=== PATIENT | male | born 1940 | race Caucasian/White ===

== ENCOUNTER → 2019-10-25 | Outpatient (CLI) | payer OTHER, MEDICARE ==
[~2019-10-25] MED LIST: ADULT LOW DOSE81 MG PO; FISHOIL PO; HCTZ PO; LIPITOR; LISINOPRIL20 MG PO; ZOCOR PO; [UNRECOGNIZED DRUG - REMARK]
== END ==
LOC: SJCVCIMAG 06:49
DX: I65.23 Occlusion and stenosis of bilateral carotid arteries (principal); I25.10 Atherosclerotic heart disease of native coronary artery without angina pectoris; Z95.1 Presence of aortocoronary bypass graft

== ENCOUNTER → 2020-07-27 | Outpatient (CLI) | payer OTHER | LOC: SJCVC 10:22 | PROVIDERS: ATTEND Internal Medicine Cardiovascular Disease | DX: I45.10 Unspecified right bundle-branch block (principal); I44.7 Left bundle-branch block, unspecified; R94.31 Abnormal electrocardiogram [ECG] [EKG]; I25.810 Atherosclerosis of coronary artery bypass graft(s) without angina pectoris; I10 Essential (primary) hypertension; E78.00 Pure hypercholesterolemia, unspecified; R00.1 Bradycardia, unspecified; Z95.1 Presence of aortocoronary bypass graft; I65.29 Occlusion and stenosis of unspecified carotid artery; K55.1 Chronic vascular disorders of intestine; Z87.891 Personal history of nicotine dependence; Z72.89 Other problems related to lifestyle; Z79.82 Long term (current) use of aspirin; Z79.899 Other long term (current) drug therapy; Z88.0 Allergy status to penicillin; Z90.89 Acquired absence of other organs; Z98.890 Other specified postprocedural states ==

== ENCOUNTER → 2020-10-25 | Outpatient (CLI) | payer OTHER | LOC: RAD 14:21 | PROVIDERS: ATTEND Neurological Surgery | DX: M48.062 Spinal stenosis, lumbar region with neurogenic claudication (principal); M41.86 Other forms of scoliosis, lumbar region ==

== ENCOUNTER → 2021-04-25 | Outpatient (CLI) | payer OTHER ==
[~2021-04-25] MED LIST changes: +NORVASC5 MG PO; +OLMESARTAN-HCT1 EAC2 PO; +SIMVASTATIN40 MG PO; -ZOCOR PO
== END ==
LOC: SJCVCIMAG 09:23
PROVIDERS: ATTEND Internal Medicine Cardiovascular Disease
DX: R94.31 Abnormal electrocardiogram [ECG] [EKG] (principal); I45.10 Unspecified right bundle-branch block; R00.1 Bradycardia, unspecified; I70.8 Atherosclerosis of other arteries; I25.10 Atherosclerotic heart disease of native coronary artery without angina pectoris; I10 Essential (primary) hypertension; E78.00 Pure hypercholesterolemia, unspecified; I65.29 Occlusion and stenosis of unspecified carotid artery; K55.1 Chronic vascular disorders of intestine; I71.4 Abdominal aortic aneurysm, without rupture; R01.1 Cardiac murmur, unspecified; Z95.1 Presence of aortocoronary bypass graft; R06.00 Dyspnea, unspecified; E78.5 Hyperlipidemia, unspecified; Z79.82 Long term (current) use of aspirin; Z79.899 Other long term (current) drug therapy; Z72.89 Other problems related to lifestyle; Z88.0 Allergy status to penicillin; Z87.891 Personal history of nicotine dependence

== ENCOUNTER 2021-05-04 09:25 | Inpatient (IN) | payer OTHER ==
[~2021-05-04] VITALS: Ht 182.9 cm; Wt 72.6 kg
[~2021-05-04 09:25] MED LIST changes: -NORVASC5 MG PO; -OLMESARTAN-HCT1 EAC2 PO
[2021-05-04 09:39] VITALS: BP 138/91
[2021-05-04] MEDS ORDERED: OLMESARTAN-HCT1 EAC2 PO (09:45)
[2021-05-04] MEDS ORDERED: NORVASC5 MG PO (09:45)
[2021-05-04 11:10] LABS: ABSOLUTE NEUTROPHILS 13.5 thou/uL (1.4-8.2); BASOPHILS 0.3 % (0.0-2.0); EOSINOPHILS 0.2 % (0.0-3.0); HEMATOCRIT 43.6 % (42.0-52.0); HEMOGLOBIN 14.5 gm/dL (14.0-18.0); LYMPHOCYTES 5.3 % (24.0-44.0); MCH 30.7 pg (26.0-34.0); MCHC 33.2 g/dL (28.0-37.0); MCV 92.6 fL (80.0-100.0); MONOCYTES 3.5 % (1.0-8.0); PLATELET COUNT 250 thou/uL (150-400); POLYS 90.7 % (36.0-66.0); RBC 4.71 mil/uL (4.50-6.00); WBC 14.9 thou/uL (4.0-11.0)
[2021-05-04 11:13] LABS: CALCIUM 9.8 mg/dL (8.5-10.1); CREATININE 1.3 mg/dL (0.7-1.3)
[2021-05-04 11:15] LABS: URINE BILIRUBIN NEGATIVE (Negative); URINE BLOOD NEGATIVE (Negative); URINE CLARITY CLEAR; URINE COLOR YELLOW; URINE GLUCOSE-RANDOM* NEGATIVE (Negative); URINE KETONES TRACE (Negative); URINE LEUKOCYTES-REFLEX NEGATIVE (Negative); URINE NITRITE-REFLEX NEGATIVE (Negative); URINE PROTEIN (DIPSTICK) NEGATIVE (Negative); URINE UROBILINOGEN 0.2 E.U./dl (0.2-1.0)
[2021-05-04 11:24] LABS: ALBUMIN 4.6 g/dL (3.4-5.0); TOTAL BILIRUBIN 0.8 mg/dL (0.2-1.0); TOTAL PROTEIN 7.9 g/dL (6.4-8.2)
[2021-05-04 16:34] VITALS: BP 157/65
[2021-05-04 17:07] VITALS: BP 153/65
[2021-05-04 17:37] VITALS: BP 151/78
--- NOTE | 2021-05-04 18:07 | NUR ---
ASSUMED PT CARE AT 1730 FROM ED. PT IS ALERT & ORIENTED X4. PT HAS IV SITE ON RAC. PT IS ON ROOM AIR. PT RATED PAIN 1/10 ON ABDOMEN. PT LAST BM WAS TODAY. PT IS ACCUCHECK ACHS. FINISHED ADMISSION. PT IS AT THE BEDSIDE. PT IS UP AD ISHMAEL. WILL CONTINUE TO MONITOR PT. FOLLOW POC.
[2021-05-04 21:24] VITALS: BP 148/49
--- NOTE | 2021-05-05 01:37 | NUR ---
PT AMBULATING TO BATHROMM INDEPENDENTLY AND IS TOLERATING WELL. TYLENOL PROVIDING PAIN RELIEF. DENIES NAUSEA. PLAN FOR LAP KAILASH 05/05. RESTING COMFORTABLY. NO NEEDS VOICED. CALL LIGHT WITHIN REACH. FREQUENT OBSERVATION.
[2021-05-05 08:06] LABS: GLYCOHEMOGLOBIN (HGB A1C) 5.7 % (4.8-5.6)
[2021-05-05 08:10] VITALS: BP 116/46
--- NOTE | 2021-05-05 10:02 | NUR ---
ASSUMED PT CARE THIS AM. PT IS ALERT & ORIENTED X4. PT IS UP AD ISHMAEL. PT IS ON ROOM AIR. PT IS CURRENTLY HAVING LAP KAILASH THIS AM. AWAITING FOR PT TO COME BACK FROM SURGERY. WILL CONTINUE TO MONITOR PT. FOLLOW POC.
[2021-05-05 11:02] VITALS: BP 112/60
[2021-05-05 12:55] LABS: ALBUMIN 3.5 g/dL (3.4-5.0); CALCIUM 8.9 mg/dL (8.5-10.1); CREATININE 1.4 mg/dL (0.7-1.3); POTASSIUM 4.4 mmol/L (3.5-5.1); TOTAL BILIRUBIN 2.4 mg/dL (0.2-1.0); TOTAL PROTEIN 6.5 g/dL (6.4-8.2)
[2021-05-05 16:15] VITALS: BP 146/78
[2021-05-05 16:23] VITALS: BP 137/50
[2021-05-05 19:27] VITALS: BP 134/51
[2021-05-06 04:39] VITALS: BP 99/51
--- NOTE | 2021-05-06 04:59 | NUR ---
PT AMBULATING IN ROOM INDEPENDENTLY AND IS TOLERATING WELL. TYLENOL PROVIDNG PAIN RELIEF. RESTING COMFORTABLY. NO NEEDS VOICED. CALL LIGHT WITHIN REACH. FREQUENT OBSERVATION.
[2021-05-06 06:01] LABS: ALBUMIN 2.7 g/dL (3.4-5.0); CALCIUM 8.2 mg/dL (8.5-10.1); CREATININE 1.1 mg/dL (0.7-1.3); POTASSIUM 4.1 mmol/L (3.5-5.1); TOTAL BILIRUBIN 0.9 mg/dL (0.2-1.0); TOTAL PROTEIN 5.4 g/dL (6.4-8.2)
--- NOTE | 2021-05-06 07:35 | EKG ---
[address] [facility] [place] [address] ELECTROCARDIOGRAM REPORT Name: LAISHA PINON Room #: 443-P ADM IN M.R.#: [id number] Admission: 05/04/21 Attend Phys: Analy Mccrary Discharge: Date of : 44 Report #: [id number] [facility] ED Test Date: 2021-05-04 Test Time: 09:52:15 Pat Name: LAISHA PINON Department: Room: 44 Gender: M Material Hauler: YOSI : 1940 Requested By: Nilesh Atkinson Order Number: [id number] MD: Pepito Delarosa Measurements Intervals [place] Rate: 48 P: 0 MS: 260 QRS: 83 QRSD: 112 T: 60 QT: 457 QTc: 409 Interpretive Statements Sinus bradycardia Prolonged MS interval Incomplete right bundle branch block Compared to ECG 07/07/2010 20:07:32 Ventricular premature complex(es) now present First degree AV block now present ST (T wave) deviation no longer present Early repolarization no longer present Electronically Signed On 05-06-2021 7:35:40 GSE MECHANIC by Pepito Delarosa [email or web address] <ELECTRONICALLY SIGNED> By: Pepito Delarosa MD, FACC 05/06/21 0735 [id number] Pepito Delarosa MD, FAC /EPI
[2021-05-06 08:00] VITALS: BP 111/56
--- NOTE | 2021-05-06 08:55 | NUR ---
80 y/o male c/o epigastric abdominal pain and back pain. Pain is sharp, stabbing, located in the right upper quadrant and epigastric. CT in ED shows cholecystitis. Had a Lap chano 05/05/21 Chart review. Cm visited with felicita at bedside. He is a & o x 4, and able to make his needs known. Lives at home with his Gurvinder. 3 steps to enter the home. Manage own medication. Drives . He was doing outpatient therapy for his back at [facility] in [facility]. No anticipated needs at nm.
[2021-05-06 17:01] VITALS: BP 146/64
--- NOTE | 2021-05-06 18:00 | NUR ---
PT ASSESSED AT START OF SHIFT. NO C/O ABD PAIN. LAP SITES WELL APPROXIMATED. LAB SODIUM [address] LIM AND IV FLUIDS CHANGED. DR. CROCKETT IN TO SEE PT AND INFORMED OF LABS. PLAN FOR PT TO STAY TO CORRECT SODIUM BEFORE DISCHARGE. PT MILDLY OFF THIS AM BUT NOTICABLE CHANGE IN NEURO AFFECT LATER AFTERNOON. AMBULATING STEADY IN HALLS. EATING AND DRINKING WELL.
[2021-05-06 19:44] VITALS: BP 127/64
--- NOTE | 2021-05-07 04:00 | NUR ---
ASSESSMENT COMPLETED.PT ALERT AND ORIENTED. VOIDING ADEQUATELY,TYLENOL GIVEN FOR GENERALISED ACHINESS.UP AD ISHMAEL, WALKED DOWN THE HALLWAY.AFEBRILE.LOOKING FORWARD TO GOING HOME TODAY.
[2021-05-07 06:31] LABS: ALBUMIN 2.8 g/dL (3.4-5.0); CALCIUM 8.4 mg/dL (8.5-10.1); POTASSIUM 4.2 mmol/L (3.5-5.1)
[2021-05-07 08:46] VITALS: BP 139/71
[2021-05-07 09:29] VITALS: BP 139/71
[2021-05-07] MEDS ORDERED: CEFUROXIME500 MG PO (09:58)
[2021-05-07] MEDS ORDERED: BENICAR40 MG PO (09:58)
--- NOTE | 2021-05-07 10:39 | NUR ---
A/O X 4. ROOM AIR. AD ISHMAEL. LEFT FOREARM IV D/C'D-GAUZE AND TAPE APPILED FOR D/C HOME. 5 ABD LAPSITES-DERMOBOND, PAIN 0/10 ONLY SLIGHT DISCOMFORT WITH MOVEMENT. NO PAIN MEDS NEEDED. D/C HOME. REFUSED A WHEELCHAIR TO BE WHEELED OUT BY STAFF. D/C TEACHING COMPLETED.
--- NOTE | 2021-05-07 17:07 | PATH ---
[facility] [address] [place] [address] PATHOLOGY RPT PROCEDURE Name: KATHRINLAISHA Room #: 443-P [facility] IN M.R.#: [id number] Admission: 05/04/21 Date of : 44 Discharge: 05/07/21 Report #: [id number] Path Case #: [id number] [facility] Accession Number: [id number] . 01 Material submitted: . gallbladder - GALLBLADDER . 01 Clinical history: . CHOLECYSTITIS . 01 Diagnosis: Gallbladder "gallbladder cholecystectomy": - Acute gangrenous cholecystitis with extensive mucosal necrosis, acute inflammation with abscess formation, edema and congestion. - Cholelithiasis. (SHA:pit; 05/07/2021) QTP 05/07/2021 1350 Local . 01 Electronically signed: . Dawit Gallo MD, Pathologist NPI- [id number] . 01 Gross description: . Fixative: Formalin Labeled: Gallbladder Specimen received: Previously opened cholecystectomy specimen Dimensions: 8.6 x 4.6 x 2.7 cm Serosa: Serrano-pink and edematous with focal hemorrhage and purulent exudate and a full-thickness defect in the body measuring 0.7 cm Lymph node: Not present Mucosa: Dark green and velvety Average wall thickness: Ranges from 0.3-0.5 cm Calculi: Yes, within the gallbladder and container are multiple gritty black calculi surrounded by thick dark brown bile. The calculi measure in aggregate 1.0 x 0.8 x 0.3 cm and range from 0.1-0.5 cm in greatest dimension Abnormalities: None identified A1- Student Officer body, fundus, and the cystic duct margin. ([facility]; 05/06/2021) [facility] 05/06/2021 1611 Local . 01 Pathologist provided ICD-10: K80.00 . 01 CPT . 075730 Specimen Comment: A courtesy copy of this report has been sent to [phone] [address] PATHOLOGY RPT PROCEDURE Name: KATHRINLAISHA Room #: 443-P [facility] IN .R.#: [id number] Admission: 05/04/21 Date of : 44 Discharge: 05/07/21 Report #: [id number] Path Case #: [id number] Specimen Comment: [phone], Specimen Comment: Report sent to , DR LMI / DR MENDOZA Performed at: [address], [place], [place] [id number] MD Dawit Gallo MD Phone: [phone]
--- NOTE | 2021-05-13 12:27 | O ---
[facility] [place] [address] OPERATIVE REPORT Name: LAISHA PINON Room #: 443-P [facility] IN M.R.#: [id number] Admission: 05/04/21 Attend Phys: Analy Tone Demetra Discharge: 05/07/21 Date of : 44 Report #: [id number] THIS REPORT FOR: cc: Natasha Goff MD, Sara A. MD Patterson, Jonathan D. MD ~ DATE OF SERVICE: 05/05/2021 PREOPERATIVE DIAGNOSIS: Acute cholecystitis. POSTOPERATIVE DIAGNOSIS: Acute cholecystitis. OPERATION: Laparoscopic cholecystectomy with intraoperative cholangiogram. SURGEON: Jose Enrique Awan MD ANESTHESIA: General. ESTIMATED BLOOD LOSS: Minimal. SPECIMENS: Gallbladder. DESCRIPTION OF PROCEDURE: After informed consent was obtained, the patient was brought to the operating room and placed supine. SCDs were placed and working, preoperative antibiotics were administered, general anesthesia was induced. The abdomen was prepped and draped in the usual sterile fashion. A 10 mm incision was made below the umbilicus. Fascia was incised and a trocar was placed. Pneumoperitoneum was established. Three right upper quadrant 5 mm ports were placed. Gallbladder was grasped and retracted cephalad. Infundibulum was grasped and retracted laterally. I dissected out the cystic duct and cystic artery. Cystic duct was clipped. A cholangiogram catheter was inserted. Cholangiogram was performed. This demonstrated filling of the cystic duct, common bile duct, common hepatic duct, bifurcation of the hepatics, smooth easy flow into duodenum without any filling defects. This was normal. Gallbladder was then grasped and the cystic duct was clipped and ligated leaving a PDS Endoloop on the remaining duct. Cystic artery was clipped and ligated. Gallbladder was then taken off the liver bed with electrocautery. It was placed into an Endopouch and removed. Fascia was then closed with a [id number] 0 Vicryl. Skin was closed with 4-0 Monocryl. Incisions were dressed with Steri-Strips. COMPLICATIONS: None. [facility] [address] [place] [address] OPERATIVE REPORT Name: LAISHA PINON Room #: 443-P [facility] IN ..#: [id number] Admission: 05/04/21 Attend Phys: Analy Mccrary Discharge: 05/07/21 Date of : 44 Report #: [id number] DISPOSITION: The patient was taken to recovery in satisfactory condition. <ELECTRONICALLY SIGNED> By: Jose Enrique Awan MD 05/13/21 1227 0921 0925 Jose Enrique Awan MD /nt
== END 2021-05-07 10:48 | disposition home or self-care (01) | DRG 418 ==
LOC: ER 09:25 → 4S 17:07
PROVIDERS: Emergency Medicine; Surgery; ADMIT Hospitalist; ATTEND Hospitalist
DX: K81.0 Acute cholecystitis (principal); E87.1 Hypo-osmolality and hyponatremia; R73.9 Hyperglycemia, unspecified; I10 Essential (primary) hypertension; I25.10 Atherosclerotic heart disease of native coronary artery without angina pectoris; Z20.822 Contact with and (suspected) exposure to COVID-19; Z95.1 Presence of aortocoronary bypass graft; Z90.49 Acquired absence of other specified parts of digestive tract; Z88.0 Allergy status to penicillin; Z79.82 Long term (current) use of aspirin; Z79.899 Other long term (current) drug therapy
CPT/HCPCS: 10195; 50101; 50411; 50555; 51297; 51489; 52265; 52266; 53307; 53312; 53314; 55245; 55317; 56462; 56525; 56526; 58574; 62110; 62900; 70005

== ENCOUNTER → 2021-06-26 | Outpatient (CLI) | payer OTHER ==
[~2021-06-26] MED LIST changes: +BENICAR40 MG PO; +CEFUROXIME500 MG PO; +NORVASC5 MG PO; +OLMESARTAN-HCT1 EAC2 PO
== END ==
LOC: SJCVCIMAG 09:13
PROVIDERS: ATTEND Internal Medicine Cardiovascular Disease
DX: I08.1 Rheumatic disorders of both mitral and tricuspid valves (principal); I25.10 Atherosclerotic heart disease of native coronary artery without angina pectoris; Z95.1 Presence of aortocoronary bypass graft